=== PATIENT | male | born 1980 | race African-American/Black ===

== ENCOUNTER → 2021-04-28 | Outpatient (CLI) | payer OTHER | LOC: M RAD 15:17 | PROVIDERS: ATTEND Physician Assistant | DX: R91.8 Other nonspecific abnormal finding of lung field (principal) ==

== ENCOUNTER 2022-01-14 13:11 | Emergency (ER) | payer OTHER ==
[~2022-01-14] VITALS: Ht 175.3 cm; Wt 115.9 kg
[2022-01-14] MEDS ORDERED: AMLO25TA PO (13:17)
[2022-01-14] MEDS ORDERED: CIPR500T39 PO (16:24)
[2022-01-14] MEDS ORDERED: HYDR-3713 PO (16:27)
[2022-01-14 16:55] VITALS: BP 141/76
== END 2022-01-14 16:57 | disposition home or self-care (01) ==
LOC: M ED 13:11
DX: R31.9 Hematuria, unspecified (principal); I10 Essential (primary) hypertension; G47.33 Obstructive sleep apnea (adult) (pediatric); Z79.899 Other long term (current) drug therapy

== ENCOUNTER → 2022-02-16 | Outpatient (REF) | payer OTHER ==
[~2022-02-16] MED LIST: AMLO25TA PO; CIPR500T39 PO; HYDR-3713 PO
[2022-02-16 17:30] LABS: APPEARANCE, URINE MANUAL CLEAR (CLEAR); BILIRUBIN, URINE MANUAL NEGATIVE (NEGATIVE); BLOOD URINE MANUAL NEGATIVE (NEGATIVE); COLOR, URINE MANUAL YELLOW (YELLOW); GLUCOSE, URINE (UA) MANUAL NEGATIVE (NEGATIVE); KETONE, URINE MANUAL NEGATIVE (NEGATIVE); LEUKOCYTE ESTERASE, URINE MAN NEGATIVE (NEGATIVE); NITRITE, URINE MANUAL NEGATIVE (NEGATIVE); PROTEIN, URINE MANUAL NEGATIVE (NEGATIVE); UROBILINOGEN, URINE MANUAL 1 MG mg/dl (NORMAL)
== END ==
LOC: M SMT 16:58
PROVIDERS: ATTEND Physician Assistant
DX: R31.0 Gross hematuria (principal)
CPT/HCPCS: 81002; 87086; 88108; G0463

== ENCOUNTER → 2022-03-01 | Outpatient (CLI) | payer OTHER ==
[~2022-03-01] MED LIST changes: +ISOVUE-370 76% 100ML VIAL As Ordered ONE
== END ==
LOC: M RAD 10:51
PROVIDERS: ATTEND Physician Assistant
DX: R31.0 Gross hematuria (principal)